=== PATIENT | male | born 1985 | race Caucasian/White ===

== ENCOUNTER 2021-01-26 16:26 | Emergency (ER) | payer MEDICAID ==
[~2021-01-26] VITALS: Ht 170.2 cm; Wt 62.5 kg
--- NOTE | 2021-01-26 16:30 | NUR ---
PT CALLED, PER FAMILY MEMBER, PT IN BR. FAMILY TOLD TO HAVE PT COME TO TR1 WHEN OUT OF BR.
--- NOTE | 2021-01-26 16:40 | NUR ---
PT CALLED AGAIN, NO ANSWER.
[2021-01-26] MEDS ORDERED: ONDANSETRON ODT 4 MG ONE (16:49)
--- NOTE | 2021-01-26 16:55 | NUR ---
ZOFRAN ODT GIVEN. URINE CUP PROVIDED.
[2021-01-26] MEDS ORDERED: SODIUM CHLORIDE 0.9% 1,000ML IVBOLUS ONE (17:00)
[2021-01-26] MEDS ORDERED: ONDANSETRON ODT 4 MG PO ONE ×2 (17:00)
[2021-01-26] MEDS ORDERED: FAMOTIDINE 20 MG/2 ML IVPush ONE (17:00)
[2021-01-26 17:19] LABS: BASOPHILS % (AUTO) 0 % (0-1); EOSINOPHILS % (AUTO) 0 % (1-7); LYMPHOCYTES % (AUTO) 3 % (22-44); MEAN CORPUSCULAR HEMOGLOBIN 31.6 pg (27.5-34.5); MEAN CORPUSCULAR HGB CONC 34.3 g/dL (33.2-36.2); MEAN PLATELET VOLUME 9.7 fL (7.4-10.4); MONOCYTES % (AUTO) 4 % (2-9); NEUTROPHILS % (AUTO) 93 % (42-75); PLATELET COUNT 243 x10^3/uL (130-400); RED BLOOD COUNT 5.58 x10^6/uL (4.38-5.82); RED CELL DISTRIBUTION WIDTH 12.3 % (9.4-14.8)
[2021-01-26 17:25] LABS: ALANINE AMINOTRANSFERASE 30 U/L (12-78); ALBUMIN 5.4 g/dL (3.4-5.0); ANION GAP 9 mmol/L (5-15); CALCIUM 10.8 mg/dL (8.5-10.1); CHLORIDE 106 mmol/L (98-107); CREATININE 1.46 mg/dL (0.7-1.3)
[2021-01-26 17:27] LABS: ALKALINE PHOSPHATASE 59 U/L (45-117); BILIRUBIN,TOTAL 1.7 mg/dL (0.2-1.0); TOTAL PROTEIN 9.8 g/dL (6.4-8.2)
[2021-01-26 17:42] LABS: MD SCAN
--- NOTE | 2021-01-26 19:43 | NUR ---
PT AMBULATED W/ A STEADY GAIT TO ROOM AT THIS TIME.
[2021-01-26] MEDS ORDERED: FAMOTIDINE 20 MG/2 ML ONE (19:48)
--- NOTE | 2021-01-26 19:59 | NUR ---
THIS IS A 35 YO M W/ C/O N/V/D STARTING THIS MORNING. PT REPORTS SON WAS IN ED RECENTLY W/ SAME. PIV STARTED, PT MEDICATED PER EMAR. VSSingh, NOMI. SIDE RAILS UPX2, FAMILY AT BEDSIDE.
[2021-01-26] MEDS ORDERED: ONDANSETRON 2MG/ML, 2ML IVPush ONE (20:30)
[2021-01-26] MEDS ORDERED: MAALOX/HYOSCYAMINE/LIDOCAINE 45 ML BTL PO ONE (20:30)
[2021-01-26] MEDS ORDERED: LACTATED RINGERS 1,000 ML IV ONE (20:30)
[2021-01-26] MEDS ORDERED: ONDANSETRON 2MG/ML, 2ML ONE (20:37)
[2021-01-26] MEDS ORDERED: MAALOX/HYOSCYAMINE/LIDOCAINE 45 ML BTL ONE (20:37)
--- NOTE | 2021-01-26 20:44 | NUR ---
task rn: pt medication per mar, Patient is resting comfortably in bed. Bed in lowest, rails engaged, call light on lap. NAD, family at bedside. Vital Signs within normal limits.
--- NOTE | 2021-01-26 21:20 | NUR ---
PT STATES UNABLE TO PRODUCE URINE SAMPLE AT THIS TIME. ERP UPDATED.
[2021-01-26 22:50] LABS: MICROSCOPIC INDICATED
[2021-01-26 22:51] VITALS: BP 94/50
--- NOTE | 2021-01-26 23:01 | NUR ---
Patient given discharge instructions and they have confirmed that they understand the instructions. Patient ambulatory with steady gait.
== END 2021-01-26 23:04 | disposition home or self-care (01) ==
LOC: ED 23:02
DX: K52.9 Noninfective gastroenteritis and colitis, unspecified (principal); E86.0 Dehydration; R11.2 Nausea with vomiting, unspecified
CPT/HCPCS: 36415; 80053; 81001; 83690; 85025; 96361; 96374; 96375; 99284; J2405; J7030; J7120